=== PATIENT | male | born 2000 | race African-American/Black ===

== ENCOUNTER 2024-04-22 22:05 | Emergency (ER) | payer OTHER ==
[~2024-04-22] VITALS: Ht 185.4 cm; Wt 92.0 kg
[2024-04-22 22:08] VITALS: TEMP 98.1
[2024-04-22 22:34] LABS: KETONE, URINE AUTO RFX NEGATIVE (NEGATIVE); LEUKOCYTE ESTERASE UR AUTO RFX NEGATIVE (NEGATIVE); MUCUS, URINE RFX SMALL (NEGATIVE); NITRITE, URINE AUTO RFX NEGATIVE (NEGATIVE); RBC, URINE AUTO RFX 0 /HPF (0-3); SQUAM EPITHELIAL CELL UR AURFX 0 /HPF (0-6); WBC, URINE AUTO RFX 3 /HPF (0-3)
[2024-04-22 23:50] VITALS: BP 107/68; O2SAT 99
== END 2024-04-22 23:51 | disposition home or self-care (01) ==
LOC: M ED 22:05
DX: S30.94XA Unspecified superficial injury of scrotum and testes, initial encounter (principal); N50.812 Left testicular pain; W21.210A Struck by ice hockey stick, initial encounter; Y92.89 Other specified places as the place of occurrence of the external cause; Y93.89 Activity, other specified; Y99.9 Unspecified external cause status